=== PATIENT | male | born 1965 | race Two or more races ===

== ENCOUNTER 2017-10-27 13:58 | Emergency (ER) | payer SELFPAY ==
[~2017-10-27] VITALS: Ht 172.7 cm; Wt 105.0 kg
[2017-10-27] MEDS ORDERED: SODIUM CHLORIDE 0.9% 1,000 ML IV ONE (18:30)
[2017-10-27] MEDS ORDERED: KETOROLAC 30MG/ML VIAL IV STA (18:30)
[2017-10-27] MEDS ORDERED: ONDANSETRON HCL 4MG/2ML VIAL IV STA (18:30)
[2017-10-27] MEDS ORDERED: MAGNESIUM/ALUMINUM HYDROXIDE/SIMETHICONE 30ML UDC PO STA (18:30)
[2017-10-27 18:49] LABS: BASOPHILS % 0.4 % (0.0-2.0); HEMATOCRIT. 45.1 % (42.0-52.0); HEMOGLOBIN. 16.2 g/dL (14.0-18.0); LYMPHOCYTES % 31.2 % (20.0-50.0); MEAN CORPUSCULAR VOLUME 86.4 fL (80.0-94.0); MEAN PLATELET VOLUME 8.1 fl (7.4-10.4); MONOCYTES % 9.2 % (2.0-8.0); NEUTROPHILS % 59.2 % (40.0-76.0); PLATELET 184 x1000/uL (130-400); RED BLOOD CELL COUNT 5.21 mill/uL (4.7-6.1); RED CELL DISTRIBUTION WIDTH 13.8 % (11.6-14.6)
[2017-10-27 18:57] LABS: INR 1.1; PROTHROMBIN TIME 11.1 sec (9.4-11.6)
[2017-10-27 19:02] LABS: CHLORIDE 101 mEq/L (98-107); ETHANOL BLOOD 236 mg/dL
[2017-10-27 19:35] LABS: CLARITY URINE CLOUDY (CLEAR); COLOR URINE DARK YELLOW (YELLOW); KETONES URINE TRACE (NEGATIVE); LEUKOCYTE ESTERASE URINE NEGATIVE (NEGATIVE); NITRITE URINE NEGATIVE (NEGATIVE); OCCULT BLOOD URINE NEGATIVE (NEGATIVE); PROTEIN URINE 1+ (NEGATIVE); SPECIFIC GRAVITY URINE 1.029 (1.005-1.030)
[2017-10-27 21:15] VITALS: BP 146/80
[2017-10-27] MEDS ORDERED: IBUPROFEN 600MG TABLET PO ONE (21:15)
== END 2017-10-27 21:25 | disposition home or self-care (01) ==
LOC: ER 13:58
DX: T51.0X1A Toxic effect of ethanol, accidental (unintentional), initial encounter (principal); R10.13 Epigastric pain; R00.0 Tachycardia, unspecified; R07.89 Other chest pain; Y90.7 Blood alcohol level of 200-239 mg/100 ml; Y92.018 Other place in single-family (private) house as the place of occurrence of the external cause
CPT/HCPCS: 36415; 71045; 80053; 81003; 83690; 83880; 84484; 85025; 85610; 93005; 96361; 96374; 96375; 99285; G0482; J1885; J2405; J7030; Z7610